=== PATIENT | male | born 1990 | race African-American/Black ===

== ENCOUNTER 2016-07-21 12:38 | Emergency (ER) | payer OTHER ==
[2016-07-21] MEDS ORDERED: ACETAMINOPHEN 325 MG TABLET PO ONE (14:28)
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
[2016-07-21] MEDS ORDERED: CYCLOBENZAPRINE HCL 10 MG TABLET PO ONE (15:53)
[2016-07-21] MEDS ORDERED: OXYCODONE HCL IR 5 MG TABLET PO ONE (15:53)
[2016-07-21 16:29] VITALS: BP 118/64
== END 2016-07-21 16:25 | disposition home or self-care (01) ==
LOC: ER 12:38
DX: G44.209 Tension-type headache, unspecified, not intractable (principal); S16.1XXA Strain of muscle, fascia and tendon at neck level, initial encounter; M25.512 Pain in left shoulder; M25.511 Pain in right shoulder; V89.2XXA Person injured in unspecified motor-vehicle accident, traffic, initial encounter; R11.10 Vomiting, unspecified; F17.200 Nicotine dependence, unspecified, uncomplicated; Z86.14 Personal history of Methicillin resistant Staphylococcus aureus infection
CPT/HCPCS: 70450; 72070; 72125; 99284

== ENCOUNTER 2017-01-26 16:27 | Emergency (ER) | payer OTHER ==
[2017-01-26 16:35] VITALS: BP 106/57
== END 2017-01-26 18:23 | disposition left against medical advice (07) ==
LOC: ER 16:27
DX: Z53.21 Procedure and treatment not carried out due to patient leaving prior to being seen by health care provider (principal)

== ENCOUNTER 2017-02-13 11:51 | Emergency (ER) | payer SELFPAY ==
[2017-02-13] MEDS ORDERED: METHYLPREDNISOLONE INJ 125 MG/2 ML SDV IM ONE (13:09)
--- NOTE | 2017-02-13 13:10 | ER Document Report ---
HPI - HPI Pain Level: 3 Notes: Patient is a 27-year-old male who presented to ED complaining of a generalized rash primarily to the flexor surfaces of his body 4 weeks. Patient states that he has a history of eczema and is having another flareup during the dry winter season. Patient states that he has been using [id number] steroid cream with minimal relief. Patient states that he does not have enough cream for all the areas that are affected. Patient has noted dry scaly skin with itching on occasion. Denies any recent illness, insect bite, abscess, purulent discharge, or streaks. He still eating and drinking without difficulties. He is urinating normally and having normal bowel movements. Denies any headache, fever, URI, sore throat, chest pain, palpitations, syncope, cough, shortness of breath, wheeze, dyspnea, abdominal pain, nausea/vomiting/diarrhea, urinary retention, dysuria, hematuria, joint pains, or rash. - ROS Notes: REVIEW OF SYSTEMS: CONSTITUTIONAL : Denies fever, chills, or sweats. Denies recent illness. EENT: Denies eye, ear, throat, or mouth pain or symptoms. Denies nasal or sinus congestion or discharge. Denies throat, tongue, or mouth swelling or difficulty swallowing. CARDIOVASCULAR: Denies chest pain. Denies palpitations or racing or irregular heart beat. Denies ankle edema. RESPIRATORY: Denies cough, cold, or chest congestion. Denies shortness of breath, difficulty breathing, or wheezing. GASTROINTESTINAL: Denies abdominal pain or distention. Denies nausea, vomiting , or diarrhea. Denies blood in vomitus, stools, or per rectum. Denies black, tarry stools. Denies constipation. GENITOURINARY: Denies difficulty urinating, painful urination, burning, frequency, blood in urine, or discharge. MUSCULOSKELETAL: Denies back or neck pain or stiffness. Denies joint pain or swelling. SKIN: see hpi NEUROLOGICAL: Denies confusion or altered mental status. Denies passing out or loss of consciousness. Denies dizziness or lightheadedness. Denies headache. Denies weakness or paralysis or loss of use of either side. Denies problems with gait or speech. Denies sensory loss, numbness, or tingling. Denies seizures. ALL OTHER SYSTEMS REVIEWED AND NEGATIVE. Dictation was performed using [employer] recognition software - CONSTITUTIONAL Constitutional: DENIES: Fever, Chills - EENT EENT: DENIES: Sore Throat, Ear Pain, Eye problems - CARDIOVASCULAR Cardiovascular: DENIES: Chest pain - RESPIRATORY Respiratory: DENIES: Trouble Breathing, Coughing - GASTROINTESTINAL Gastrointestinal: DENIES: Abdominal Pain, Black / Bloody Stools - URINARY Urinary: DENIES: Dysuria, Urgency, Frequency Past Medical History - Social History Smoking Status: Current Every Day Smoker Chew tobacco use (# tins/day): No Frequency of alcohol use: Social Drug Abuse: Marijuana Family History: Reviewed & Not Pertinent Patient has suicidal ideation: No Patient has homicidal ideation: No Renal/ Medical History: Denies: Hx Peritoneal Dialysis Infectious Medical History: Reports: Hx MRSA - right leg wound - Immunizations Immunizations up to date: Yes Hx Diphtheria, Pertussis, Tetanus Vaccination: Yes Vertical Provider Document - CONSTITUTIONAL Agree With Documented VS: Yes Notes: PHYSICAL EXAMINATION: GENERAL: Well-appearing, well-nourished and in no acute distress. HEAD: Atraumatic, normocephalic. EYES: Pupils equal round and reactive to light, extraocular movements intact, sclera anicteric, conjunctiva are normal. ENT: EAC clear b/l. TM's intact b/l without erythema, fluid, or perforation. Nares patent and without discharge. oropharynx clear without exudates. No tonsilar hypertrophy or erythema. Moist mucous membranes. No sinus tenderness. NECK: Normal range of motion, supple without lymphadenopathy LUNGS: Breath sounds clear to auscultation bilaterally and equal. No wheezes rales or rhonchi. HEART: Regular rate and rhythm without murmurs, rubs, gallops. ABDOMEN: Soft, nontender, nondistended abdomen. No guarding, no rebound. No masses appreciated. Normal bowel sounds present. No CVA tenderness bilaterally. Musculoskeletal: FROM to passive/active. Strength 5+/5. Extremities: No cyanosis, clubbing, or edema b/l. Peripheral pulses 2+. Capillary refill less than 3 seconds. NEUROLOGICAL: Cranial nerves grossly intact. Normal speech, normal gait. Normal sensory, motor exams PSYCH: Normal mood, normal affect. SKIN: dry slightly scaly/flaky skin to the flexor surfaces generalized body. Non-tender. No abscess, discharge, or streaks. No induration. - INFECTION CONTROL TRAVEL OUTSIDE OF THE [place] IN LAST 30 DAYS: No - RESPIRATORY O2 Sat by Pulse Oximetry: 100 Course - Re-evaluation Re-evalutation: 02/13/17 13:07 Patient is an afebrile, well-hydrated, 27-year-old male who presents to the ED with an eczema outbreak. Vitals are stable. PE is otherwise unremarkable. I will send him home with a prescription for steroid tapering dose that he may begin tomorrow. Solu-Medrol given IM today. I will also send him home with a prescription for triamcinolone that he may use on specific locations as needed. Conservative measures otherwise for symptoms. Recheck with your PCM in 3-5 days. Consider consult dermatology if needed. Return to the ED with any worsening/concerning symptoms otherwise as reviewed in discharge. Patient is in agreement. - Vital Signs Vital signs: Temp Pulse Resp BP Pulse Ox 98.5 F 57 L 16 118/57 L 100 02/13/17 12:10 02/13/17 12:10 02/13/17 12:10 02/13/17 12:10 02/13/17 12:10 Discharge - Discharge Clinical Impression: Eczema Qualifiers: Eczema type: unspecified Qualified Code(s): L30.9 - Dermatitis, unspecified Condition: Stable Disposition: HOME, SELF-CARE Instructions: Atopic Dermatitis (Eczema) ([facility]) Additional Instructions: Keep the skin clean Wash with mild soap and water; moisturize Tylenol/ibuprofen if needed Triple antibiotic ointment daily if any break in the skin Take medication as directed Monitor for any worsening symptoms Recheck with your PCM in 3-5 days Consider consult with Dermatology for ongoing/worsening symptoms Return to the ED with any worsening symptoms and/or development of fever, headache, chest pain, palpitations, syncope, shortness of breath, trouble breathing, abdominal pain, n/v/d, abscess, purulent discharge, red streaks, worsening swelling, or other worsening symptoms that are concerning to you. Prescriptions: Prednisone [Deltasone 10 mg Tablet] 10 mg PO ASDIR PRN #21 tablet PRN Reason: Triamcinolone Acetonide [Aristocort 0.5% Cream 15 gm] 1 applic TP BID #1 tube Forms: Elevated Blood Pressure, Smoking Cessation Education Referrals: RORY SUMNER DO [ACTIVE STAFF] - Follow up as needed
[2017-02-13 13:28] VITALS: BP 115/60
== END 2017-02-13 13:28 | disposition home or self-care (01) ==
LOC: ER 11:51
DX: L30.9 Dermatitis, unspecified (principal); F17.200 Nicotine dependence, unspecified, uncomplicated; Z86.14 Personal history of Methicillin resistant Staphylococcus aureus infection
CPT/HCPCS: 99282; J2930

== ENCOUNTER 2017-03-27 10:48 | Emergency (ER) | payer OTHER ==
[2017-03-27 11:14] VITALS: BP 99/54
--- NOTE | 2017-03-27 11:49 | ER Document Report ---
ED General - General Chief Complaint: Knee Pain Stated Complaint: LEFT KNEE PAIN Time Seen by Provider: 03/27/17 11:49 TRAVEL OUTSIDE OF THE [place] IN LAST 30 DAYS: No - HPI Patient complains to provider of: Atraumatic left knee pain Onset: Yesterday Onset/Duration: Intermittent Severity: Moderate Pain Level: 3 - Atraumatic left knee pain located proximal to his left patella. No effusion. Patient feels his knee "locks up". - Related Data Allergies/Adverse Reactions: hydrocodone [Hydrocodone] Allergy (Verified 02/13/17 11:56) rash, hives Past Medical History - Social History Smoking Status: Unknown if Ever Smoked Family History: Reviewed & Not Pertinent Renal/ Medical History: Denies: Hx Peritoneal Dialysis Infectious Medical History: Reports: Hx MRSA - right leg wound - Immunizations Immunizations up to date: Yes Hx Diphtheria, Pertussis, Tetanus Vaccination: Yes Review of Systems - Review of Systems Constitutional: No symptoms reported EENT: No symptoms reported Cardiovascular: No symptoms reported Respiratory: No symptoms reported Gastrointestinal: No symptoms reported Genitourinary: No symptoms reported Male Genitourinary: No symptoms reported Musculoskeletal: No symptoms reported Skin: No symptoms reported Hematologic/Lymphatic: No symptoms reported Neurological/Psychological: No symptoms reported Physical Exam - Vital signs Vitals: Temp Pulse Resp BP Pulse Ox 98.6 F 69 16 99/54 L 99 03/27/17 11:07 03/27/17 11:07 03/27/17 11:07 03/27/17 11:07 03/27/17 11:07 Interpretation: Normal - General General appearance: Appears well, Alert - HEENT Head: Normocephalic, Atraumatic Eyes: Normal Pupils: PERRL - Respiratory Respiratory status: No respiratory distress Chest status: Nontender Breath sounds: Normal Chest palpation: Normal - Cardiovascular Rhythm: Regular Heart sounds: Normal auscultation Murmur: No - Abdominal Inspection: Normal Distension: No distension Bowel sounds: Normal Tenderness: Nontender Organomegaly: No organomegaly - Back Back: Normal, Nontender - Extremities General upper extremity: Normal inspection, Nontender, Normal color, Normal ROM , Normal temperature General lower extremity: Normal inspection, Nontender, Normal color, Normal ROM , Normal temperature, Normal weight bearing. No: Truong's sign - Neurological Neuro grossly intact: Yes Cognition: Normal Orientation: AAOx4 Allred Coma Scale Eye Opening: Spontaneous [place]e Coma Scale Verbal: Oriented [place] Coma Scale Motor: Obeys Commands Allred Coma Scale Total: 15 Speech: Normal Motor strength normal: LUE, RUE, LLE, RLE Sensory: Normal - Psychological Associated symptoms: Normal affect, Normal mood - Skin Skin Temperature: Warm Skin Moisture: Dry Skin Color: Normal Course - Re-evaluation Re-evalutation: 03/27/17 11:53 Benign physical exam, no new direct trauma to his knee. I suspicion this could be a meniscus tear. Imaging studies unremarkable. Will follow up with orthopedics. 03/27/17 12:31 - Vital Signs Vital signs: Temp Pulse Resp BP Pulse Ox 98.6 F 69 16 99/54 L 99 03/27/17 11:07 03/27/17 11:07 03/27/17 11:07 03/27/17 11:07 03/27/17 11:07 - Diagnostic Test Radiology reviewed: Image reviewed, Reports reviewed Discharge - Discharge Clinical Impression: Knee sprain Qualifiers: Encounter type: initial encounter Involved ligament of knee: unspecified ligament Laterality: left Qualified Code(s): S83.92XA - Sprain of unspecified site of left knee, initial encounter Condition: Stable Disposition: HOME, SELF-CARE Instructions: Sprained Knee ([facility]) Referrals: ERLIN LEACH MD [ACTIVE STAFF] - Follow up as needed
--- NOTE | 2017-03-27 12:29 | RADIOLOGY REPORT (SQ) ---
EXAM DESCRIPTION: KNEE LEFT 4 VIEW COMPLETED DATE/TIME: 03/27/2017 12:18 pm REASON FOR STUDY: pain COMPARISON: None. NUMBER OF VIEWS: Four views. TECHNIQUE: AP, lateral, and both oblique radiographic images acquired of the left knee. LIMITATIONS: None. FINDINGS: MINERALIZATION: Normal. BONES: No acute fracture or dislocation. No worrisome bone lesions. JOINT: No effusion. SOFT TISSUES: No soft tissue swelling. No radio-opaque foreign body. OTHER: No other significant finding. IMPRESSION: NEGATIVE STUDY OF THE LEFT KNEE. NO RADIOGRAPHIC EVIDENCE OF ACUTE INJURY. TECHNICAL DOCUMENTATION: JOB ID: [id number] All Rights Reserved
== END 2017-03-27 12:43 | disposition home or self-care (01) ==
LOC: ER 10:48
DX: S83.92XA Sprain of unspecified site of left knee, initial encounter (principal); X58.XXXA Exposure to other specified factors, initial encounter; Z88.6 Allergy status to analgesic agent; Z86.14 Personal history of Methicillin resistant Staphylococcus aureus infection
CPT/HCPCS: 99283